=== PATIENT | male | born 1950 | race Caucasian/White ===

== ENCOUNTER 2019-09-16 09:38 | Outpatient (CLI) | payer MEDICARE | END 2019-09-16 09:39 | disposition home or self-care (01) | LOC: COV 09:38 | PROVIDERS: ATTEND Surgery | DX: D09.21 Carcinoma in situ of right eye (principal) | CPT/HCPCS: 81599 ==

== ENCOUNTER 2020-07-24 14:42 | Outpatient (CLI) | payer MEDICARE ==
--- NOTE | 2020-07-24 16:13 | XRAY Report ---
PROCEDURE: Shoulder 3 View LT INDICATIONS: LEFT SHOULDER PAIN TECHNIQUE: 3 views of the shoulder were acquired. COMPARISON: None. FINDINGS: Bones: No fractures or dislocations. No suspicious bony lesions. Visualized ribs appear intact. T here is a widened appearance of the acromioclavicular joint space. Humeral head is high riding. Clini pancho humeral joint space is narrow. Soft tissues: No suspicious soft tissue calcifications. IMPRESSION: 1. Widened appearance of the acromioclavicular joint space. In the absence of distal clavicular resec tion, before meals sprain should be considered if appropriate. 2. High riding humeral head which can be seen with rotator cuff pathology. Reviewed by: Sasha Guerra MD on 07/24/2020 4:12 PM PDT Approved by: Sasha Guerra MD on 07/24/2020 4:12 PM PDT Station ID: [id number]
== END 2020-07-24 23:59 | disposition home or self-care (01) ==
LOC: DI.S 14:42
PROVIDERS: ATTEND Physician Assistant
DX: R93.6 Abnormal findings on diagnostic imaging of limbs (principal)